=== PATIENT | male | born 1995 | race Caucasian/White ===

== ENCOUNTER 2020-02-11 08:12 | Day surgery (SDC) | payer OTHER ==
[2020-02-11] MEDS ORDERED: Ringers Lactate 1,000 ML IV ONE (08:36)
[2020-02-11] MEDS ORDERED: CEFAZOLIN/SWI 1gm 1 GM/10 ML SYR ONE (08:36)
[2020-02-11] MEDS ORDERED: FENTANYL CITR 100 MCG/2 ML ONE (09:31)
[2020-02-11] MEDS ORDERED: propofoL 200 MG/20 ML VIAL IV ONE (09:32)
[2020-02-11] MEDS ORDERED: MIDAZOLAM HCL 2 MG/2 ML INJ ONE (09:32)
[2020-02-11] MEDS ORDERED: LIDOCAINE 2% MPF 5 ML VIAL ONE (09:32)
[2020-02-11] MEDS ORDERED: BUPIVACA 0.25%/EPI 0.0005%/PF 30 ML VIAL ONE (09:55)
[2020-02-11] MEDS ORDERED: dexAMETHasone 10 MG/ML VIAL ONE (10:02)
[2020-02-11] MEDS ORDERED: KETOROLAC 30 MG/ML INJ ONE (10:52)
--- NOTE | 2020-02-11 10:54 | P.OP ---
Preoperative diagnosis: Infected Sebaceous cyst of upper back Postoperative diagnosis: Infected Sebaceous cyst of upper back Primary procedure: Wide Excisional Debridement of Infected Sebaceous cyst of upper back Anesthesia: GETA +Local Estimated blood loss: <10cc Specimen: Cultures, Debridement tissue Findings: 5x5x4 cm infected, ruptured sebaceous cyst to fascia over muscle Complications: None Transferred to: Recovery Room Condition: Good
[2020-02-11] MEDS ORDERED: ONDANSETRON 4 MG/2 ML VIAL ONE (12:08)
[2020-02-11 12:50] VITALS: BP 132/73; TEMP 97.9; O2SAT 100
[2020-02-11] MEDS ORDERED: CODEINE 30MG/APAP 300MG TAB ONE (13:18)
--- NOTE | 2020-02-11 22:34 | OP ---
Date of Procedure: 02/11/2020 Surgeon: Sarath Gimenez MD, Preoperative Diagnosis: Infected sebaceous cyst of the upper back. Postoperative Diagnosis: Infected sebaceous cyst of the upper back. Procedure Performed: Wide excisional debridement of infected sebaceous cyst of the upper back. Anesthesia: General endotracheal plus local 0.5% Marcaine with epinephrine. Estimated Blood Loss: Less than 10 mL. Specimens: Cultures sent for both aerobic and anaerobic speciation. Debridement tissue sent as well . Findings: 5 x 5 x 4 cm infected ruptured sebaceous cyst to the fascia overlying the muscle. Complications: None. Disposition: Transferred to recovery room in good condition. Procedure In Detail: After informed was obtained, patient was brought to the operating room, prepped and draped in the usual sterile fashion. After adequate anesthesia was achieved, anesthestized the area of the mid-upper back appropriately. Around an area of draining, infected sebaceous cyst was ap proximately 5 cm x 5 cm x 4 cm. I dissected down through the subcutaneous tissues with a 15 blade do wn through subcutaneous tissues. Electrocautery was used to dissect circumferentially around the inf ected ruptured sebaceous cyst. The capsule and sebaceous material were removed at this point and all remaining necrotic tissue and infected tissue was removed using combination of sharp and blunt disse ction, curette, and electrocautery. After this was completely removed, hemostasis was achieved with electrocautery. The area was copiously irrigated multiple times and completely clear and once the wo und was completely clear and hemostasis was easily achieved, the area was packed with half-inch iodof orm packing. Sterile dressing was placed over top. The patient tolerated the procedure well without evidence of complication, transferred to PACU in good condition. All counts were correct at the end of the case. TK/MODL Voice ID: [id number] Report ID: [id number]
== END 2020-02-11 13:30 | disposition home or self-care (01) ==
LOC: OR 08:12
PROVIDERS: ATTEND Surgery
PROC: 0HB6XZZ Excision of Back Skin, External Approach (ICD-10-PCS; principal; 2020-02-11 10:45)
DX: L72.0 Epidermal cyst (principal); I96 Gangrene, not elsewhere classified; Z11.59 Encounter for screening for other viral diseases
CPT/HCPCS: 87070; 87205 ×2; 88304; 87075; 11406; U0002; J2704; J2250; J3010; J1100; J0690; J7120; J2405